=== PATIENT | female | born 1980 | race African-American/Black ===

== ENCOUNTER 2016-09-10 13:27 | Emergency (ER) | payer OTHER ==
[~2016-09-10] VITALS: Ht 172.7 cm; Wt 118.2 kg
[~2016-09-10 13:27] MED LIST: ARIP10TA14 PO; LORA1TAB3 PO; SERT100T12 PO
[2016-09-10 13:41] VITALS: BP 133/87
[2016-09-10] MEDS ORDERED: GABA-533 PO (13:47)
== END 2016-09-10 16:02 | disposition left against medical advice (07) ==
LOC: EMS 13:27
DX: M25.561 Pain in right knee (principal); F17.210 Nicotine dependence, cigarettes, uncomplicated; Z53.21 Procedure and treatment not carried out due to patient leaving prior to being seen by health care provider
CPT/HCPCS: 81025

== ENCOUNTER 2020-01-02 05:58 | Emergency (ER) | payer SELFPAY ==
[~2020-01-02] VITALS: Ht 172.7 cm; Wt 90.0 kg
[~2020-01-02 05:58] MED LIST changes: -ARIP10TA14 PO; +GABA-1201 PO; -LORA1TAB3 PO
[2020-01-02 07:57] VITALS: BP 157/87
== END 2020-01-02 08:16 | disposition home or self-care (01) ==
LOC: EMS 05:58
DX: S62.300A Unspecified fracture of second metacarpal bone, right hand, initial encounter for closed fracture (principal); F41.9 Anxiety disorder, unspecified; F31.9 Bipolar disorder, unspecified; F20.9 Schizophrenia, unspecified; F17.210 Nicotine dependence, cigarettes, uncomplicated; F14.90 Cocaine use, unspecified, uncomplicated; F12.90 Cannabis use, unspecified, uncomplicated; F19.90 Other psychoactive substance use, unspecified, uncomplicated; W19.XXXA Unspecified fall, initial encounter; Y93.89 Activity, other specified; Y92.89 Other specified places as the place of occurrence of the external cause; Y99.8 Other external cause status